=== PATIENT | female | born 1970 | race Caucasian/White ===

== ENCOUNTER 2022-01-31 17:20 | Emergency (ER) | payer MEDICAID ==
--- NOTE | 2022-01-31 17:24 | ERPHSYRPT ---
- History of Present Illness Time Seen by Provider: 01/31/22 17:24 Source: patient Exam Limitations: no limitations Physician History: This is a 51-year-old right-handed white female who was working in her yard on plants and did not fall or injure her right wrist. However over the last 10 days she has noticed some increasing pain and swelling on the dorsal aspect of the area. She went to [facility] earlier today and an x-ray was performed. The report by Michele palacios stated that the patient may have some inflammatory erosion that could be either rheumatoid arthritis or another entity in the differential of septic arthritis. The patient has no evidence of fracture per the report from the radiologist. Patient does have some redness and swelling and tenderness on the skin overlying the right hand and wrist that is the dorsal aspect. Patient was told to come to the emergency department for further evaluation and management. Occurred: days ago (10) Method of Injury: other (No specific injury) Severity of Pain-Max: mild Severity of Pain-Current: mild Extremities Pain Location: wrist: right, hand: right Modifying Factors: Improves With: movement Associated Symptoms: none, No fever Allergies/Adverse Reactions: No Known Drug Allergies Allergy (Unverified 01/31/22 17:42) Hx Tetanus, Diphtheria Vaccination/Date Given: Yes Hx Influenza Vaccination/Date Given: No Hx Pneumococcal Vaccination/Date Given: No Travel Risk - International Travel Have you traveled outside of the country in past 3 weeks: No - Coronavirus Screening Are you exhibiting any of the following symptoms?: No Close contact with a COVID-19 positive Pt in past 14-21 Days: No - Review of Systems Constitutional: No Symptoms Eyes: No Symptoms Ears, Nose, & Throat: No Symptoms Respiratory: No Symptoms Cardiac: No Symptoms Abdominal/Gastrointestinal: No Symptoms Genitourinary Symptoms: No Symptoms Musculoskeletal: Joint Redness (Right wrist), Joint Pain (Right wrist) Neurological: No Symptoms Psychological: No Symptoms Endocrine: No Symptoms Hematologic/Lymphatic: No Symptoms Immunological/Allergic: No Symptoms All Other Systems: Reviewed and Negative - Past Medical History Pertinent Past Medical History: No - Past Surgical History Past Surgical History: Yes Musculoskeletal: Orthopedic Surgery Other Surgical History: FINGER - Social History Smoking Status: Current every day smoker Exposure to second hand smoke: No Drug Use: bath salts Patient Lives Alone: No - Nursing Vital Signs Nursing Vital Signs: Initial Vital Signs Temperature 97.6 F 01/31/22 17:43 Pulse Rate 103 H 01/31/22 17:43 Respiratory Rate 18 01/31/22 17:43 Blood Pressure 133/94 01/31/22 17:43 O2 Sat by Pulse Oximetry 97 01/31/22 17:43 Pain Scale Pain Intensity 6 - Physical Exam General Appearance: no apparent distress, alert, anxiety Eyes, Ears, Nose, Throat Exam: normal ENT inspection, moist mucous membranes Neck Exam: normal inspection, non-tender, supple, full range of motion Cardiovascular/Respiratory Exam: chest non-tender, no respiratory distress Abdominal Exam: non-tender Back Exam: normal inspection, normal range of motion, No CVA tenderness, No vertebral tenderness Shoulder Exam: normal inspection, non-tender, no evidence of injury, normal ROM Elbow/Forearm Exam: normal inspection, non-tender, no evidence of injury, normal ROM Wrist Exam: no evidence of injury, normal ROM, soft tissue tenderness (With associated mild redness and swelling), swelling Hand Exam: normal inspection (At site), non-tender, no evidence of injury, normal ROM Neuro/Tendon Exam: normal sensation, normal motor functions, normal tendon functions, no evidence tendon injury, No sensory deficit Mental Status Exam: alert, oriented x 3, cooperative Skin Exam: other (See above with regard to the right wrist and dorsal aspect of right hand) SpO2 Interpretation: normal O2 Delivery: Room Air - Course Nursing assessment & vital signs reviewed: Yes - Progress Progress: unchanged Counseled pt/family regarding: diagnosis, need for follow-up, rad results - Departure Departure Disposition: Home Clinical Impression: Right wrist pain, Swelling of right wrist Condition: Stable Critical Care Time: No Referrals: DOCTOR,NO FAMILY [Primary Care Provider] - Follow up/PCP as directed Additional Instructions: Take your antibiotics and other medications as prescribed. Follow-up with the [facility] orthopedic clinic on 02/02/2022 at 8 AM. You do not need an appointment. It is a walk-in clinic. Prescriptions: Ciprofloxacin [Cipro 500 MG] 500 mg PO BID #14 tablet Naproxen 500 mg [Naprosyn 500 MG] 500 mg PO BID #10 tablet
[2022-01-31] MEDS ORDERED: solu-MEDROL 125 MG, Sterile H2O 10 ml 2 ML IM ONE ×2 (18:14)
[2022-01-31] MEDS ORDERED: Levofloxacin 500 MG Tablet PO ONE (18:14)
[2022-01-31] MEDS ORDERED: NORCO 5/325 MG PO ONE (18:14)
[2022-01-31] MEDS ORDERED: Rocephin 1000 MG INJ IM ONE (18:14)
[2022-01-31] MEDS ORDERED: Sterile H2O 10 ml IJ ONE (18:28)
[2022-01-31] MEDS ORDERED: Levofloxacin 500 MG Tablet ONE (18:28)
[2022-01-31] MEDS ORDERED: XYLOCAINE 1% HCL 20 ML MDV ONE (18:29)
[2022-01-31] MEDS ORDERED: NORCO 5/325 MG ONE (18:29)
[2022-01-31] MEDS ORDERED: Rocephin 1000 MG INJ ONE (18:29)
[2022-01-31] MEDS ORDERED: solu-MEDROL ONE (18:29)
[2022-01-31 18:32] VITALS: BP 128/68; PULSE 98; O2SAT 98
== END 2022-01-31 18:59 | disposition home or self-care (01) ==
LOC: ED 17:20
DX: M25.531 Pain in right wrist (principal); M25.431 Effusion, right wrist; Z72.0 Tobacco use
CPT/HCPCS: 96372; 99283; J0696; J2930; A9270-GY

== ENCOUNTER 2024-08-09 11:06 | Emergency (ER) | payer MEDICARE ==
[2024-08-09 11:13] VITALS: TEMP 97.6
--- NOTE | 2024-08-09 11:36 | ERPHSYRPT ---
- History of Present Illness Time Seen by Provider: 08/09/24 11:08 Historian: patient Exam Limitations: no limitations Patient Subjective Stated Complaint: Pt states "I have had belly pain for three days and not able to eat. I have not had a bowel movment in awhile and I am always short o f breath." Triage Nursing Assessment: Pt presented alert and oriented X 3, skin pwd. Pt has mottling noted to bialt lower extremities and hands. Pt has audible rhales noted. Physician History: 53-year-old female with a history of tobacco use, chronic shortness of breath presented in the ER with complaints of generalized abdominal pain with nausea, anorexia and questionable constipation. Patient reports moderate intensity sharp pain all over her abdomen with no significant aggravating or relieving factors. Denies any fever or chills or sick contact. No history of any abdominal surgeries. Allergies/Adverse Reactions: bee venom protein (honey bee) Allergy (Severe, Verified 08/09/24 11:13) anaphylaxis Home Medications: No Reportable Medications [No Reported Medications] 08/09/24 [History] Hx Tetanus, Diphtheria Vaccination/Date Given: No Hx Influenza Vaccination/Date Given: No Hx Pneumococcal Vaccination/Date Given: No Immunizations Up to Date: No Travel Risk - International Travel Have you traveled outside of the country in past 3 weeks: No - Emerging Infectious Disease Are you exhibiting symptoms associated with any current EIDs: Yes Symptoms: Abdominal Pain, Shortness of Breath - Review of Systems Constitutional: No Symptoms Ears, Nose, & Throat: No Symptoms Respiratory: Cough, Dyspnea Cardiac: No Symptoms Abdominal/Gastrointestinal: Abdominal Pain, Nausea, Constipation Genitourinary Symptoms: No Symptoms Musculoskeletal: Arthralgias Skin: No Symptoms Neurological: No Symptoms Endocrine: No Symptoms Hematologic/Lymphatic: No Symptoms - Past Medical History Pertinent Past Medical History: No Neurological History: No Pertinent History ENT History: No Pertinent History Cardiac History: No Pertinent History Respiratory History: No Pertinent History Endocrine Medical History: No Pertinent History Musculoskeletal History: No Pertinent History, Fibromyalgia GI Medical History: No Pertinent History History: No Pertinent History Female Reproductive Disorders: No Pertinent History - Past Surgical History Past Surgical History: Yes Neuro Surgical History: No Pertinent History Cardiac: No Pertinent History Respiratory: No Pertinent History Gastrointestinal: No Pertinent History Genitourinary: No Pertinent History Musculoskeletal: Orthopedic Surgery Female Surgical History: No Pertinent History Other Surgical History: FINGER - Social History Smoking Status: Current every day smoker Exposure to second hand smoke: Yes Drug Use: marijuana, bath salts - Social Determinants of Health Will the patient participate in the screening: Declined to provide - Nursing Vital Signs Nursing Vital Signs: Initial Vital Signs Temperature 97.6 F 08/09/24 11:07 Pulse Rate 100 H 08/09/24 11:07 Respiratory Rate 22 08/09/24 11:07 Blood Pressure 137/98 08/09/24 11:07 O2 Sat by Pulse Oximetry 90 L 08/09/24 11:07 Pain Scale Pain Intensity 4 - Physical Exam General Appearance: no apparent distress, alert Eye Exam: PERRL/EOMI Ears, Nose, Throat Exam: normal ENT inspection Neck Exam: normal inspection, supple, full range of motion Respiratory Exam: wheezing, No accessory muscle use Cardiovascular Exam: regular rate/rhythm, normal heart sounds Gastrointestinal/Abdomen Exam: soft, normal bowel sounds, tenderness (Generalized mild to moderate with deep palpation), guarding Back Exam: normal inspection, normal range of motion Extremity Exam: normal inspection, normal range of motion Neurologic Exam: alert, oriented x 3, cooperative Skin Exam: normal color SpO2 Interpretation: normal SpO2: 90 O2 Delivery: Room Air Ordered Tests: Active Orders 24 hr Category Date Time Status IV Insertion STAT Care 08/09/24 11:31 Active NPO (ED) STAT Care 08/09/24 11:31 Active ABDOMEN AND PELVIS W/0 CONTRAS [CT] Stat Exams 08/09/24 11:31 Completed CBC W DIFF Stat Lab 08/09/24 11:46 Completed CMP Stat Lab 08/09/24 11:46 Completed LIPASE Stat Lab 08/09/24 11:46 Completed UA W/RFX UR CULTURE Stat Lab 08/09/24 11:31 Ordered Medication Summary Generic Name Dose Route Start Last Admin Trade Name Freq PRN Reason Stop Dose Admin Sodium Chloride 1,000 mls @ 125 mls/hr 08/09/24 11:45 Sodium Chloride 0.9% 1000 Ml IV 09/08/24 11:44 .Q8H NENO Discontinued Medications Generic Name Dose Route Start Last Admin Trade Name Freq PRN Reason Stop Dose Admin Morphine Sulfate 4 mg 08/09/24 11:31 Morphine Sulfate 4 Mg/Ml Injection IV 08/09/24 11:32 STAT ONE Ondansetron HCl 4 mg 08/09/24 11:31 Ondansetron Hcl 4 Mg/2 Ml Vial IV 08/09/24 11:32 STAT ONE Lab/Rad Data: Laboratory Result Diagrams 08/09/24 11:46 08/09/24 11:46 Laboratory Results 08/09/24 08/09/24 Range/Units 11:46 11:46 WBC 12.0 H (3.98-10.04) x10^3/uL RBC 5.98 H (3.93-5.22) x10^6/uL Hgb 17.9 H (11.2-15.7) g/dL Hct 53.5 H (34.1-44.9) % MCV 89.5 (79.4-94.8) fL MCH 29.9 (25.6-32.2) pg MCHC 33.5 (32.2-35.5) g/dL RDW 15.4 H (11.7-14.4) % Plt Count 181 L (182-369) x10^3/uL MPV 12.8 H (9.4-12.3) fL Gran % 73.8 H (34.0-71.1) % Immature Gran % (Auto) 0.3 (0.001-0.429) % Nucleat RBC Rel Count 0.0 (0.00-0.2) % Eos # (Auto) 0 L (0.04-0.36) x10^3/uL Immature Gran # (Auto) 0.04 H (0.001-0.031) x10^3u/L Absolute Lymphs (auto) 1.95 (1.18-3.74) x10^3/uL Absolute Monos (auto) 1.12 H (0.24-0.86) x10^3/uL Absolute Nucleated RBC 0.00 (0.00-0.012) x10^3u/L Lymphocytes % 16.2 L (19.3-51.7) % Monocytes % 9.3 (4.7-12.5) % Eosinophils % 0.0 L (0.7-5.8) % Basophils % 0.4 (0.1-1.2) % Absolute Granulocytes 8.85 H (1.56-6.13) x10^3/uL Basophils # 0.05 (0.01-0.08) x10^3/uL Sodium 135 (135-145) mmol/L Potassium 4.5 (3.5-5.1) mmol/L Chloride 100 (98-107) mmol/L Carbon Dioxide 19 L (22-30) mmol/L Anion Gap 19.6 H (5-15) MEQ/L BUN 39 H (7-17) mg/dL Creatinine 0.96 (0.52-1.04) mg/dL Estimated GFR 69.9 ML/MIN Glucose 124 H (74-106) mg/dL Calcium 9.0 (8.4-10.2) mg/dL Total Bilirubin 3.10 H (0.2-1.3) mg/dL AST 245 H (14-36) U/L ALT 203 H (0-35) U/L Alkaline Phosphatase 264 H (38-126) U/L Serum Total Protein 7.1 (6.3-8.2) g/dL Albumin 4.2 (3.5-5.0) g/dL Lipase 55 (23-300) U/L - Progress Progress: improved, pain not gone completely Progress Note: 08/09/24 16:20 53-year-old is evaluated in the ER for abdominal pain with nausea and decreased oral intake. Patient has diffuse abdominal tenderness with minimal guarding. No rebound tenderness. She is given fluids and symptomatic treatment, workup showed white count of 12, chemistries consistent with some element of dehydration and liver enzymes with total bili of 3.1 with a baseline normal and AST and ALT in 200s. CT abdomen pelvis without contrast showed distended gallbladder with gallbladder wall thickening and pericholecystic fluid consistent with acute cholecystitis. No obvious gallstone sludge or CBD stone noticed. Lipase is normal. She is given a dose of Zosyn. I believe patient has acute cholecystitis, discussed with Dr. Duenas at 1527 general surgeon on-call for [facility], reviewed history, workup, recommended obtaining MRCP today over here at [facility] and then patient can be kept in here if she has no obstruction otherwise transfer. MRCP cannot be done here today. I have discussed the results of workup and recommendations of general surgery and need for transfer which patient seems understanding. I have discussed with hospitalist from [facility] Dr. Pearson, reviewed history, workup and agreed with transfer. Complexity of problems addressed: High acuity Complexity of data reviewed/analyzed: High acuity Risk of complication: high risk Discussed with Dr.: Other (Dr. Duenas general surgery [place], Dr. Retana [facility] hospitalist) Counseled pt/family regarding: lab results, diagnosis, need for follow-up, rad results Medical Desision Making - Discussion of managment Care discussed with:: hospitalist Reviewed:: Test results Agreed on:: Treatment plan Will see patient: in hospital - Diagnostic Testing Diagnostic test were ordered, analyzed, and reviewed by me: Yes Radiological Interpretation: Reviewed by me - Risk of complications The pt has a mod risk of morbidity or mortality based on: Need for prescription drug management The pt has a high risk of morbidity or mortality based on: Need for major surgery in patient with known risk factors, Decision regarding hospitilization or escalation of hosp level of care - Departure Departure Disposition: Transfer Clinical Impression: Acute cholecystitis Condition: Stable Critical Care Time: No Referrals: HARRY MONTEIRO [Primary Care Provider, [facility]] - Follow up/PCP as directed
[2024-08-09 11:50] LABS: Absolute Neutrophil Ct (ANC) 8.85 x10^3/uL (1.56-6.13); BASOPHIL % 0.4 % (0.1-1.2); Basophil (Absolute #) 0.05 x10^3/uL (0.01-0.08); Eosinophil (Absolute #) 0 x10^3/uL (0.04-0.36); Hematocrit 53.5 % (34.1-44.9); Hemoglobin 17.9 g/dL (11.2-15.7); IMMATURE GRAN # 0.04 x10^3u/L (0.001-0.031); IMMATURE GRAN % 0.3 % (0.001-0.429); Lymphocyte (Absolute #) 1.95 x10^3/uL (1.18-3.74); Lymphocytes % 16.2 % (19.3-51.7); Mean Cell Volume 89.5 fL (79.4-94.8); Mean Corpuscular Hemoglobin 29.9 pg (25.6-32.2); Mean Corpuscular Hgb Concent. 33.5 g/dL (32.2-35.5); Mean Platelet Volume 12.8 fL (9.4-12.3); Monocyte (Absolute #) 1.12 x10^3/uL (0.24-0.86); Monocytes % 9.3 % (4.7-12.5); Neutrophil % 73.8 % (34.0-71.1); Platelet Count 181 x10^3/uL (182-369); Red Blood Count 5.98 x10^6/uL (3.93-5.22); Red Cell Distribution Width 15.4 % (11.7-14.4)
[2024-08-09 11:58] LABS: ALBUMIN 4.2 g/dL (3.5-5.0); ANION GAP 19.6 MEQ/L (5-15); BILIRUBIN,TOTAL 3.1 mg/dL (0.2-1.3); Creatinine 1 0.96 mg/dL (0.52-1.04); EST GLOMERULAR FILTRATION RATE 69.9 ML/MIN; Potassium 4.5 mmol/L (3.5-5.1); Total Protein 7.1 g/dL (6.3-8.2)
--- NOTE | 2024-08-09 13:59 | XRAY ---
Indication: Abdomen pain. Multiple contiguous axial images obtained through the abdomen and pelvis without contrast. Comparison: None Lung bases clear with incidental tiny left base calcified granuloma. Heart is enlarged. Noncontrasted stomach and bowel loops appear nonobstructed. Appendix not visualized. Normally distended gallbladder without gallstones. There is mild gallbladder wall thickening with pericholecystic stranding, possible acute cholecystitis. Tiny fluid in right colic gutter and pelvis presumed related. No walled off fluid collection or free air. Remaining liver, pancreas, spleen, adrenal glands, kidneys, ureters, bladder, and uterus are unremarkable for noncontrast exam. Mild scattered aortoiliac calcifications without AAA. Osseous structures intact. Impression: 1. Abnormal gallbladder wall thickening with pericholecystic stranding. Rule out cholecystitis. Gallbladder sonogram may yield further information. Tiny fluid right colic gutter and pelvis may be related. 2. Incidental cardiomegaly, left lung base calcified granuloma, and arteriosclerotic disease.
[2024-08-09] MEDS ORDERED: PIPERACILLIN/TAZOBACTAM IV ONE (17:03)
[2024-08-09] MEDS ORDERED: MORPHINE SULFATE 4 MG INJ ONE (17:03)
[2024-08-09] MEDS ORDERED: Zofran 4 MG/2 ML VIAL ONE (17:03)
[2024-08-09] MEDS ORDERED: Sodium Chloride 100ML MINI-BAG PLUS 100 ML IV ONE (17:04)
[2024-08-09] MEDS ORDERED: Sodium Chloride 0.9% 1000 ML 1,000 ML ONE ×2 (17:04→19:50)
[2024-08-09] MEDS: Sodium Chloride 0.9% 1000 ML 1,000 ML IV SCH (17:05)
[2024-08-09] MEDS: PIPERACILLIN/TAZOBACTAM 3.375 GM in Sodium Chloride 100ML MINI-BAG PLUS 100 ML IV ONE (17:05)
[2024-08-09] MEDS: Zofran 4 MG/2 ML VIAL IV ONE (17:07)
[2024-08-09] MEDS: MORPHINE SULFATE 4 MG INJ IV ONE (17:07)
[2024-08-09 21:09] VITALS: BP 122/90; PULSE 92; RESP 18; O2SAT 98
== END 2024-08-09 21:14 | disposition short-term general hospital (02) ==
LOC: ED 11:06
DX: K81.0 Acute cholecystitis (principal); R10.84 Generalized abdominal pain; R11.0 Nausea; R63.0 Anorexia; Z72.0 Tobacco use
CPT/HCPCS: 36415; 74176; 80053; 83690; 85025; 96361; 96365; 96374; 96375; 99285; J2270; J2405